=== PATIENT | female | born 1990 | race Hispanic/Latino ===

== ENCOUNTER 2023-03-20 01:08 | Emergency (ER) | payer SELFPAY ==
[2023-03-20 01:10] VITALS: BP 123/77; PULSE 85; RESP 16; TEMP 36.4; O2SAT 98; BMI 41.3
[2023-03-20 01:32] VITALS: PULSE 80; RESP 16; O2SAT 98
--- NOTE | 2023-03-20 01:32 | EX.ED.DYSGE1 ---
HPI History of Present Illness Chief Complaint: Dizziness Informant: patient and spouse/S.O. (who is OK acting as quality control inspector; pt speaks very little niuean) Narrative Narrative: Healthy 32-year-old patient history of iron deficiency anemia has been having intermittent vertigo for the past 4 days. No tinnitus, vision changes, focal neurologic symptoms, headaches, or syncope. No recent URI. No recent injury. Associated with nausea and vomiting, and upper abdominal discomfort, but the discomfort only is there when she has vertigo. The vertigo is intermittent, it started when she was working, she works on a factory line, turning her head triggers the symptoms and certain position changes such as getting up from a lying down position in bed makes it significantly worse/triggers it. At the current moment while sitting here she is asymptomatic. PFSH PFS Medical History Anemia Low vitamin D level Home Medications meclizine 25 mg tablet 25 mg PO Q8H PRN PRN Dizziness #20 tabs 03/20/23 [Rx Last Taken Unknown] ondansetron 4 mg disintegrating tablet 8 mg (2 x 4 mg) PO Q8H PRN PRN Nausea #20 tabs 03/20/23 [Rx Last Taken Unknown] Allergy/AdvReac Type Severity Reaction Status Date / Time No Known Allergies Allergy Verified 03/20/23 01:10 Social History Smoking Status: Never smoker ROS ROS ED Constitutional Constitutional ED: Denies chills or fever(s) Eyes Eyes: Denies change in vision or diplopia ENT ENT ED: Reports as per HPI and vertigo; Denies rhinorrhea or sore throat Cardiovascular Cardiovascular: Denies chest pain or palpitations Respiratory/Chest Respiratory/Chest: Denies cough or dyspnea Gastrointestinal Gastrointestinal: Reports nausea and vomiting; Denies abdominal pain or diarrhea Genitourinary Genitourinary ED: Denies dysuria or hematuria Musculoskeletal Musculoskeletal: Denies back pain or neck pain Integumentary Denies abscess or rash Neurologic Neurologic: Reports disequilibrium and vertigo; Denies headache(s), paresthesias or weakness Psychiatric Psychiatric: Denies anxiety or suicidal thoughts EXAM Physical Exam Const Vital Signs: 03/20/23 01:10 03/20/23 01:32 Temperature 97.6 F L Temperature Source Temporal Pulse Rate 85 80 Respiratory Rate 16 16 Blood Pressure 123/77 H Blood Pressure Mean 92 Pulse Ox 98 98 Oxygen Delivery Method Room Air Positive well nourished and well developed General Appearance ED: well developed and NAD HEENT Reports TM's clear and moist mucous membranes normocephalic and atraumatic Tympanic Membrane ED: Yes TM's clear Eyes PERRL and EOMs intact bilaterally Eyes Narrative: Fatigable horizontal nystagmus, no other nystagmus including vertical, rotatory Neck full ROM and supple Resp normal respiratory effort and clear to auscultation bilaterally Cardio regular rate, regular rhythm and no murmurs GI non-tender and non-distended Auscultation: normoactive bowel sounds Palpation: soft Back/Spine no CVA tenderness General Back: other FROM Extremity normal to inspection General Extremety ED: Negative for edema, pulses abnormal or tenderness General Extremity: Negative for edema or pulses abnormal Neuro oriented x3, CN's II-XII intact bilaterally and no sensory deficits noted Neuro Narrative: Normal [id number] and [id number] bilaterally. Sensorium / Orientation: awake and alert Motor Exam: strength 5/5 throughout Skin no rashes or lesions noted and no wounds MDM MDM MDM Narrative Medical decision making narrative: Patient has normal vital signs, normal [id number] and atab-ki-egys bilaterally, do not suspect this is central in etiology. Will prescribe her meclizine and Zofran, she was given those medicines here which helped, and follow-up with otolaryngology if she does not get better after a week or so. She is comfortable with that plan. Discharge Plan Triage Chief Complaint: Dizziness ED Provider: Lencho Hurley Dx/Rx/DC Orders Clinical Impression: Episodic peripheral vertigo Instructions: ED BPV Vertigo Prescriptions: New meclizine [meclizine] 25 mg tablet 25 mg PO Q8H PRN PRN (Reason: Dizziness) Qty: 20 0RF ondansetron [ondansetron] 4 mg tablet,disintegrating 8 mg PO Q8H PRN PRN (Reason: Nausea) Qty: 20 0RF Stand Alone Forms: ED Work / School Excuse Primary Care Provider: Vianey Olivares Referrals: Vianey Olivares MD [Primary Care Provider] - Print Language: Lebanese Disposition Disposition: Home, Self Care Discharge Date/Time: 03/20/23 02:40
[2023-03-20] MEDS: Ondansetron ODT 4 MG Tablet 8 MG PO (02:03)
[2023-03-20] MEDS: Meclizine HCl 25 MG Tablet PO (02:04)
== END 2023-03-20 02:40 | disposition home or self-care (01) ==
LOC: ED 01:44
PROVIDERS: Emergency Provider Emergency Medicine; PCP Internal Medicine; Visit Provider Emergency Medicine
DX: H81.399 Other peripheral vertigo, unspecified ear (principal)
CPT/HCPCS: 99283; A4216